=== PATIENT | female | born 1955 | race Caucasian/White ===

== ENCOUNTER → 2019-03-15 14:01 | Outpatient (CLI) | payer BC, SELFPAY ==
--- NOTE | 2019-03-15 14:10 | XR_ITS ---
PROCEDURE: XR KNEE RT 3V CLINICAL INDICATION: RT KNEE SWELLING COMPARISON: No exams were available for comparison FINDINGS: No fracture or dislocation. No lytic or blastic change. There is normal mineralization. There are mild osteoarthritic changes of the medial compartment and patellofemoral joint Other findings:None. IMPRESSION: . Mild osteoarthritis otherwise negative Dictated by: Bill Sidhu MD 03/15/2019 14:29 Electronically signed by Bill Sidhu MD in [place] 03/15/2019 14:29
[2019-03-15 15:33] LABS: Uric Acid 4.4 mg/dL (2.6-7.2)
[2019-03-15 15:34] LABS: C-Reactive Protein < 0.2 mg/dL (0.0-0.9)
[2019-03-15 16:01] LABS: Erythrocyte Sedimentation Rate 69 mm/hr (0-30)
[2019-03-19 06:36] LABS: RA Latex Turbid. 11.7 IU/mL (0.0-13.9)
[2019-03-20 06:14] LABS: Antinuclear Antibodies, IFA Negative (.)
== END ==
PROVIDERS: PCP Nurse Practitioner Family; Visit Provider Nurse Practitioner Family
DX: M25.461 Effusion, right knee (principal)
CPT/HCPCS: 36415; 73562; 84550; 85651; 86038; 86140; 86431

== ENCOUNTER 2019-07-30 13:00 | Outpatient (RCR) | payer BC, SELFPAY ==
--- NOTE | 2019-06-27 15:05 | HMH.PTOPEV ---
PT Outpatient Evaluation Rehab PT Outpatient Evaluation Start: 06/27/19 14:29 Freq: Status: Active Protocol: Document 06/27/19 14:29 PDESEROUX (Rec: 06/27/19 15:05 PDESEROUX [id number]) Electronically Signed By Devon Sandhu, PT 06/27/19 14:29 Outpatient Therapy Subjective History Subjective History Pt. is a 63 year old female who presents to outpatient PT for complaints of acute and intermittent RLE P! of insidious onset since . Pt. reports she was driving to work one morning and couldn't get out of her car because her RLE hurt so bad. Pt. reports her doctor thinks she has a pinched nerve from a bulging disc. Pt. reports some symptom relief post steroid pack, but more symptom relief w/ prescribed Gabapentin. Pt. denies recent diagnostic imaging nor injections for current pathology. 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 Pt. denies any bowel/bladder incontinences. Current medications include Gabapentin and Celexa. PMH includes Hysterectomy, Cholecystectomy, and bilateral Carpal Tunnel surgeries. Chief Complaint Pain Symptom Type Sharp,Shooting Symptoms Relieved By Rest/Positioning,Prescription Meds Symptoms Aggravated By Standing,Bending/Stooping, Twisting,Walking Prior Functional Limitations None Current Functional Limitations Housework,Sleeping,Standing, Walking,Bending/Stooping Symptom Description Intermittent Level of pain today (0-10) 0 Pain scale - at its best (0-10) 0 Pain scale - at its worst (0-10) 10 Lumbopelvic Eval Posture Thoracic Spine Posture Standing Position Neutral Lumbar Spine Posture Standing Position Neutral Assistive device Assistive Devices None / NA Gait Observation General Gait Pattern Observation Antalgic Gait,Decrease Weight Bear (R),Decrease Stride Lngth (L) Palapation tenderness
== END 2019-08-13 08:35 | disposition home or self-care (01) ==
LOC: PT.CARL 13:00
PROVIDERS: PCP Nurse Practitioner Family; Visit Provider Family Medicine
DX: M51.16 Intervertebral disc disorders with radiculopathy, lumbar region (principal); M54.16 Radiculopathy, lumbar region
CPT/HCPCS: 97010; 97012; 97014; 97033; 97110; 97140; 97163; G0283

== ENCOUNTER → 2020-04-10 11:42 | Outpatient (CLI) | payer BC, SELFPAY ==
--- NOTE | 2020-04-10 11:45 | XR_ITS ---
PROCEDURE: XR FOOT WT BEARING RT 3V CLINICAL INDICATION: pain COMPARISON: No exams were available for comparison FINDINGS: No fracture or dislocation. No lytic or blastic change. There is normal mineralization. The joint spaces are well-preserved. No significant degenerative/arthritic changes. No erosive changes evident. Other findings:Small calcaneal spur and small Achilles enthesophyte noted IMPRESSION: No acute findings. Dictated by: Bill Sidhu MD 04/10/2020 13:29 Bill Sidhu MD in [place] 04/10/2020 13:29
--- NOTE | 2020-04-10 11:45 | XR_ITS ---
PROCEDURE: XR FOOT WT BEARING LT 3V CLINICAL INDICATION: pain COMPARISON: No exams were available for comparison FINDINGS: No fracture or dislocation. No lytic or blastic change. There is normal mineralization. Mild degenerative changes at the navicular cuneiform and cuneiform metatarsal joint. Small calcaneal spur and small Achilles enthesophyte. There is an additional spur along the plantar surface of the calcaneus. Other findings:None. IMPRESSION: Mild degenerative changes with calcaneal spurs Dictated by: Bill Sidhu MD 04/10/2020 13:30 Bill Sidhu MD in [place] 04/10/2020 13:30
== END ==
PROVIDERS: PCP Family Medicine; Visit Provider Podiatrist
DX: M79.672 Pain in left foot (principal); M79.671 Pain in right foot
CPT/HCPCS: 73630; 87070; 87077; 87186; 87205

== ENCOUNTER → 2020-06-11 10:28 | Outpatient (CLI) | payer BC, SELFPAY ==
--- NOTE | 2020-06-11 10:34 | US_ITS ---
PROCEDURE: US EXTREMITY LT LIMITED CLINICAL INDICATION: evaluate for foreign body in left foot Puncture wound at the plantar surface of left foot, nonhealing wound. COMPARISON: CR XR FOOT WT BEARING LT 3V from 04/10/2020 CR XR FOOT WT BEARING RT 3V from 04/10/2020 FINDINGS: Fluid extends from the skin surface for a depth approximately 1.5 centimeters. Soft tissue projects into these areas of edema. A there is hyperemia at the skin surface. No hyperemia associated with deeper soft tissues to suggest developing abscess or foreign body reaction. IMPRESSION: No abscess or foreign body. Dictated by: Gunjan Pool MD 06/11/2020 13:22 Gunjan Pool MD in [place] 06/11/2020 13:22
== END ==
PROVIDERS: PCP Family Medicine; Visit Provider Podiatrist
DX: M79.672 Pain in left foot (principal); L02.612 Cutaneous abscess of left foot; L84 Corns and callosities
CPT/HCPCS: 76882; 87070; 87186; 87205

== ENCOUNTER 2020-08-14 11:00 | Outpatient (RCR) | payer BC, SELFPAY ==
--- NOTE | 2020-07-29 12:21 | HMH.PTOPEV ---
PT Outpatient Evaluation Rehab PT Outpatient Evaluation Start: 07/29/20 10:56 Freq: Status: Active Protocol: Document 07/29/20 10:56 MORRIS (Rec: 07/29/20 12:21 [email or web address] [id number]) Electronically Signed By Devon Sandhu, PT 07/29/20 10:56 Outpatient Therapy Subjective History Subjective History Pt. is a 64 year old female who presents to outpatient PT clinic w/ complaints of chronic and constant LBP! w/ subacute and intermittent BLE P! 2-3 weeks ago. Pt. reports having constant LBP! for as long as I can remember. Pt. describes the current BLE P! as an ache posteriorly that runs all the way down to my feet and make my feet hurt. Pt. reports BLE symptoms worsen w/ prolonged standing and ambulation, states having symptom relief w/ sitting. Pt. denies having recent diagnostic imaging nor injections for current pathology. Pt. also denies having bowel nor bladder dysfunction. Pt. RTMD 08/20/20 . Pt. 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 Current medications include Tylenol, Celexa, Ibuprofen, and Lisinopril. PMH includes lumbar spondylosis, OA, Hypertension, Hysterectomy, chronic LBP!, and a Cholecystectomy. Chief Complaint Pain,Stiff,Gives out/Unstable, Weakness Symptom Type Ache,Dull,Shooting Symptoms Relieved By Rest/Positioning,Heat,Ice,OTC Meds Symptoms Aggravated By Standing,Bending/Stooping, Physical Activity,Twisting, Walking,Lifting Prior Functional Limitations None Current Functional Limitations Lifting,Housework,Standing, Squatting,Recreation Activity, Walking,Stair
== END 2020-08-21 13:51 | disposition home or self-care (01) ==
LOC: PT.CARL 11:00
PROVIDERS: PCP Family Medicine; Visit Provider Family Medicine
DX: M54.5 Low back pain (principal)
CPT/HCPCS: 97010; 97014; 97110; 97140; 97163; G0283

== ENCOUNTER → 2020-09-01 12:47 | Outpatient (POV) | payer BC, SELFPAY ==
[2020-09-01 12:53] VITALS: BP 158/81; PULSE 97; RESP 20; TEMP 36.6; O2SAT 98; BMI 32.3
--- NOTE | 2020-09-01 13:15 | HMH.PMCON ---
Assessment and Plan (1) Back pain Status: Acute Category: Medical Code(s): M54.9 - Dorsalgia, unspecified (2) Lumbar radiculopathy Status: Acute Category: Medical Code(s): M54.16 - Radiculopathy, lumbar region - Assessment and plan all Dx Assessment and Plan for all problems:: I do believe the MRI will be very beneficial and help determining pathology for the patient. She has failed 6 weeks of conservative treatment including physical therapy inflammatories. I will follow-up with her on to review her MRI with her she has been instructed to call the office if she has any issues prior to her next appointment. Dr. Guillory has reviewed this note and agrees with this plan of care. This note was dictated using voice recognition software and may contain errors or omissions HPI - Data of Consult Consult date: 09/01/20 Requesting Physician: Lesli Werner APRN Primary Care Provider: Bo Weir MD - Consult Narrative Reason for consult: Back pain History of present illness: Ms. Butcher is a 64 year old female who presents today for consultation regards to her low back and bilateral leg pain. Patient had right leg symptomology sometime back. She had a locking up of her leg this did improve with physical therapy. However it is now returned and is in her bilateral lower extremities. She rates her pain today a 6 out of 10. She has an MRI set up for Tuesday. CC: Lesli Werner APRN [facility] History I have reviewed the patient's past medical history: Yes Medical History: Reports:: Anxiety, Hypertension Denies:: Cancer, Diabetes Mellitus Type 1, Diabetes Mellitus Type 2, MRSA *Have you ever received a pneumonia vaccine?: No *Have you received a flu vaccine this season?: No Laterality Cases: Bilateral: Carpal Tunnel Release Other Surgeries: Yes: Cholecystectomy, Colonoscopy, Hysterectomy-Total Amputation: No Fractures: No - *Social History Smoking Status: Current every day smoker # Packs/Day (cigarettes): 1 Alcohol Intake: never *Occupational Status:: employed Housing: house *Travel in the last 8 weeks: None - Psychiatric History Pschychiatric History:: Reports:: Anxiety Family Hx:: Cancer Review of Systems - Review of Systems ROS General: no recent weight change, no fever, no sleep disturbances Respiratory: no cough, no shortness of air, no recurring pulmonary infections Cardiovascular/Peripheral Vascular: No chest pain, No palpitations, no edema, no shortness of breath. Gastrointestinal: no new onset incontinence, normal bowel movements reported Genitourinary: no new onset incontinence Musculoskeletal: Back pain, leg pain Psychiatric: normal mood/ affect Neurological: [denies new onset weakness in extremities], [denies new onset balance issues] Meds Home Medications Medication Instructions Recorded Confirmed Type citalopram 20 mg tablet 20 mg PO DAILY tab 04/10/20 09/01/20 History lisinopril 5 mg tablet 5 mg PO DAILY tab 06/24/20 09/01/20 History Allergies Allergy/AdvReac Type Severity Reaction Status Date / Time codeine Allergy Nausea Verified 09/01/20 12:54 Sulfa (Sulfonamide Allergy Nausea Verified 09/01/20 12:54 Antibiotics) Objective Vital signs: Temp Pulse Resp BP Pulse Ox 97.9 F 97 H 20 158/81 H 98 09/01/20 12:53 09/01/20 12:53 09/01/20 12:53 09/01/20 12:53 09/01/20 12:53 Narrative: Physical Exam General: Alert and oriented x3, no acute distress, pleasant and cooperative, [on room air] Lungs: Resps E/U, Symmetrical chest expansion, Eyes: PERRL Musculoskeletal: Flexion and extension of lumbar spine somewhat guarded secondary to pain, deep tendon reflexes normal, strength in upper and lower extremities [5/5], antalgic gait noted Neurological: speech clear, distance learning coordinator equal, no gross sensory deficits
== END ==
PROVIDERS: PCP Family Medicine; Visit Provider Clinical Nurse Specialist Family Health
DX: M54.9 Dorsalgia, unspecified (principal); M54.16 Radiculopathy, lumbar region
CPT/HCPCS: 99202; G0463

== ENCOUNTER → 2020-09-03 14:50 | Outpatient (CLI) | payer BC, SELFPAY ==
--- NOTE | 2020-09-03 14:53 | MR_ITS ---
PROCEDURE: MR LUMBAR SPINE WO CON CLINICAL INDICATION: ACUTE BILATERAL LOW BACK PAIN COMPARISON: No exams were available for comparison TECHNIQUE: Standard multiplanar multiecho sequences are performed without contrast. 3-D MIP and myelographic images are also rendered and reviewed FINDINGS: There is normal lumbar lordosis. Vertebral body heights and alignment are maintained. Schmorl's node noted and the superior endplate of T12 vertebral body. Modic type 2 change noted at the inferior endplate of L2 vertebral body. Minor disc desiccation with disc bulges. Bone marrow signal intensity is unremarkable without evidence of marrow infiltrative process. The conus terminates at L1 level. Both kidneys demonstrate multiple T2 hyperintense lesions, largest on the left measuring up to 1.8 centimeters, partially visualized. Further details as described below: T12-L1: No significant canal or foraminal narrowing L1-2: Small disc bulge and mild bilateral facet joint hypertrophy causes mild canal and mild bilateral foraminal narrowing. L2-3: Broad-based disc bulge, bilateral facet joint and ligamentum flavum hypertrophy causes mild to moderate bilateral foraminal narrowing. No significant canal narrowing. L3-4: Broad-based disc bulge with small annular tear and mild bilateral facet joint hypertrophy causes mild to moderate canal narrowing. There is mild bilateral foraminal narrowing. L4-5: Broad-based disc bulge, bilateral facet joint and ligamentum flavum hypertrophy causes moderate right and mild left foraminal narrowing. Mild canal narrowing is noted. L5-S1: Broad-based disc bulge, bilateral facet joint hypertrophy causes minor thecal sac indentation. There is moderate bilateral foraminal narrowing. IMPRESSION: Minor multilevel degenerative changes of the lumbar spine with mild to moderate foraminal narrowing at multiple levels as described above. Dictated by: Amanda Llamas 09/04/2020 09:42 Amanda Llamas in [place] 09/04/2020 09:42
== END ==
PROVIDERS: PCP Family Medicine; Visit Provider Family Medicine
DX: M54.5 Low back pain (principal); M48.062 Spinal stenosis, lumbar region with neurogenic claudication
CPT/HCPCS: 72148; 76376

== ENCOUNTER → 2020-09-04 14:38 | Outpatient (POV) | payer BC, SELFPAY ==
[2020-09-04 14:56] VITALS: BP 125/88; PULSE 89; RESP 18; O2SAT 98; BMI 32.3
--- NOTE | 2020-09-04 15:30 | P.CONS_ITS ---
[facility] Pain Management SOAP Note Subjective:: Patient is a pleasant 64-year-old white female who presents today for follow-up after MRI. Patient has multilevel degenerative disc disease and broad-based disc bulge. Severe L5-S1. Patient is having pain in her low back and bilateral lower extremities. We discussed epidural steroid injections and neurosurgical consultation she would like to move forward with this. She is not on any anticoagulation therapy. She is failed over 6 weeks of conservative therapy including physical therapy, anti-inflammatories. ROS General: no recent weight change, no fever, no sleep disturbances Respiratory: no cough, no shortness of air, no recurring pulmonary infections Cardiovascular/Peripheral Vascular: No chest pain, No palpitations, no edema, no shortness of breath. Gastrointestinal: no new onset incontinence, normal bowel movements reported Genitourinary: no new onset incontinence Musculoskeletal: Back pain, leg pain Psychiatric: normal mood/ affect, Neurological: [denies new onset weakness in extremities], [denies new onset balance issues] Objective:: Physical Exam General: Alert and oriented x3, no acute distress, pleasant and cooperative, [on room air] Lungs: Resps E/U, Symmetrical chest expansion, Eyes: PERRL Musculoskeletal: Flexion and extension of lumbar spine somewhat guarded secondary to pain, deep tendon reflexes normal, strength in upper and lower extremities [5/5], [abnormal gait noted] Neurological: speech clear, clothes separator equal, no gross sensory deficits Assessment:: Degenerative disc disease lumbar spine lumbar radiculopathy, back pain Plan:: We will set her up for an L5-S1 epidural steroid injection. She has been instructed to call the office if she has any issues prior to her next appointment. I will follow-up with her afterwards reassess her symptoms at that time Dr. Guillory has reviewed this note and agrees with this plan of care. This note was dictated using voice recognition software and may contain errors or omissions [facility] History I have reviewed the patient's past medical history: Yes Medical History: Reports:: Anxiety, Hypertension Denies:: Cancer, Diabetes Mellitus Type 1, Diabetes Mellitus Type 2, MRSA *Have you ever received a pneumonia vaccine?: Yes *Have you received a flu vaccine this season?: Yes Laterality Cases: Bilateral: Carpal Tunnel Release Other Surgeries: Yes: Cholecystectomy, Colonoscopy, Hysterectomy-Total Amputation: No Fractures: No - *Social History Smoking Status: Current every day smoker # Packs/Day (cigarettes): 1 Alcohol Intake: never *Occupational Status:: employed Housing: house *Travel in the last 8 weeks: None - Psychiatric History Pschychiatric History:: Reports:: Anxiety Family Hx:: Cancer
== END ==
PROVIDERS: PCP Family Medicine; Visit Provider Clinical Nurse Specialist Family Health
DX: M51.16 Intervertebral disc disorders with radiculopathy, lumbar region (principal)
CPT/HCPCS: 99212; G0463

== ENCOUNTER 2020-09-12 14:20 | Day surgery (SDC) | payer BC, SELFPAY ==
[2020-09-12 14:35] VITALS: BP 184/93; PULSE 94; RESP 18; TEMP 36.3; O2SAT 98; BMI 32.3
[2020-09-12 15:02] VITALS: BP 155/85; PULSE 99; RESP 18; O2SAT 98
[2020-09-12 15:03] VITALS: BP 156/85; PULSE 98; RESP 18; O2SAT 99
--- NOTE | 2020-09-12 15:04 | HMH.PMPROC ---
- Procedure Date: 09/12/20 Time: 15:04 Anesthesiologist:: Dewey Guillory MD Complications:: None Pre-procedure Diagnosis:: Degenerative disc disease of lumbar spine with lumbar radiculopathy symptoms Post-procedure Diagnosis:: Same Indications for Procedure:: This patient is a pleasant 64-year-old white female who we are treating for low back pain with lumbar radiculopathy symptoms. She does have multilevel degenerative disc disease with broad-based disc bulge at L5-S1. Will do lumbar epidural steroid injection today to see if this helps with her back pain and leg pain. Procedure Details:: Informed consent was obtained and the risk and benefits of the procedure was explained to the patient. The patient was taken to the procedure room. The patient was placed prone on the procedure table. The patient was prepped and draped in sterile fashion. C-arm fluoroscopy was used to view the lumbar spine. Skin and subcutaneous tissues were anesthetized using lidocaine. I placed an 18-gauge epidural needle and advanced into the L4-L5 interspace using fluoroscopic guidance and [id number] to air. After confirmation of needle placement in the epidural space with dye I injected 2 mL of lidocaine 1.5% with Depo-Medrol 80 mg. Patient tolerated the procedure well with no complications. Plan and Disposition:: We will follow-up with her in 2 weeks. Will reevaluate her symptoms at that time.
[2020-09-12 15:20] VITALS: BP 148/97; PULSE 97; RESP 18; O2SAT 98
== END 2020-09-12 15:20 | disposition home or self-care (01) ==
PROVIDERS: PCP Family Medicine; Visit Provider Anesthesiology
DX: M51.16 Intervertebral disc disorders with radiculopathy, lumbar region (principal); I10 Essential (primary) hypertension; F41.9 Anxiety disorder, unspecified; Z72.0 Tobacco use; F32.9 Major depressive disorder, single episode, unspecified; Z87.39 Personal history of other diseases of the musculoskeletal system and connective tissue; Z88.2 Allergy status to sulfonamides; Z88.6 Allergy status to analgesic agent
CPT/HCPCS: 62323; J1040; Q9966

== ENCOUNTER → 2020-10-06 14:37 | Outpatient (CLI) | payer BC, SELFPAY ==
--- NOTE | 2020-10-06 14:41 | US_ITS ---
PROCEDURE: US KIDNEY CLINICAL INDICATION: RENAL CYST COMPARISON: MR MR LUMBAR SPINE WO CON from 09/03/2020 FINDINGS: The right kidney is [id number]. No hydronephrosis, cortical thinning, or renal mass or perinephric fluid collection is evident. The left kidney is [id number]. No hydronephrosis, cortical thinning, or renal mass or perinephric fluid collection is evident. There are a few small subcentimeter bilateral renal cortical cysts similar to prior MRI. In addition there is a mildly complex 2 centimeter cyst on the right kidney. Therefore, further imaging with CT abdomen with renal mass protocol is recommended. Renal vascular flow noted bilaterally. IMPRESSION: A few small bilateral renal cortical cysts. Mildly complex 2 centimeter cyst on the right kidney for which further imaging with CT abdomen with renal mass protocol is recommended. No hydronephrosis. Dictated by: Gary Key 10/07/2020 09:02 Gary Key in [place] 10/07/2020 09:02
== END ==
PROVIDERS: PCP Family Medicine; Visit Provider Family Medicine
DX: N28.1 Cyst of kidney, acquired (principal)
CPT/HCPCS: 76770

== ENCOUNTER → 2020-10-11 07:31 | Outpatient (CLI) | payer BC, SELFPAY ==
[2020-10-11 08:18] LABS: Blood Urea Nitrogen 12 mg/dl (7-17); Estimated Glomerular Filt Rate 101 ml/min (>60); GFR (African American) 122 ML/MIN (>60)
== END ==
PROVIDERS: Visit Provider Family Medicine
DX: N28.1 Cyst of kidney, acquired (principal)
CPT/HCPCS: 36415; 82565; 84520

== ENCOUNTER → 2020-10-13 10:49 | Outpatient (CLI) | payer BC, SELFPAY ==
--- NOTE | 2020-10-13 10:54 | CT_ITS ---
PROCEDURE: CT ABDOMEN WO/W CON CLINICAL HISTORY: RENAL CYST Follow-up renal cyst COMPARISON: MR MR LUMBAR SPINE WO CON from 09/03/2020 US US KIDNEY from 10/06/2020 TECHNIQUE: 75 mL Isovue 350 Axial images obtained with sagittal and coronal reformats. All CT scans at the facility use one or more dose reduction, viz: automated exposure control, ma/kV adjustment per patient size (including targeted exams where dose is matched to indication, i.e. head), or iterative reconstruction technique. FINDINGS: Lung bases are clear. There has been a prior cholecystectomy. No focal liver lesion apparent. There are few small peripancreatic and periportal lymph nodes. The spleen, adrenal glands, and pancreas have an unremarkable appearance. There are nonobstructing punctate bilateral renal calculi. The stones measure up to 3 mm in the lower pole on the right and 2 mm in the mid polar region on the left. No hydronephrosis. There are bilateral renal cysts noted the largest measuring 2 cm in the mid pole posteriorly on the right and may contain a thin internal septation as noted on the ultrasound. No enhancing septa or cortical thickening apparent. No wall calcification. There is a cortical scar involving the left kidney laterally. No retroperitoneal adenopathy. There is a 1.5 cm cyst in the upper pole of the left kidney medially which may also contain a thin septation. No wall enhancement Degenerative changes are present in the lower thoracic spine. IMPRESSION: Bilateral renal cyst as described above Bosniak class 2 F. Suggest 6 month follow-up to confirm stability. Bilateral nephrolithiasis. No ureteral calculi or hydronephrosis. Dictated by: Bill Sidhu MD 10/13/2020 12:12 Bill Sidhu MD in [place] 10/13/2020 12:12
== END ==
PROVIDERS: PCP Family Medicine; Visit Provider Family Medicine
DX: N28.1 Cyst of kidney, acquired (principal)
CPT/HCPCS: 74170; Q9967

== ENCOUNTER 2020-11-06 11:00 | Outpatient (RCR) | payer BC, MEDICARE, SELFPAY ==
--- NOTE | 2020-10-10 11:28 | HMH.PTOPEV ---
PT Outpatient Evaluation Rehab PT Outpatient Evaluation Start: 10/10/20 09:48 Freq: Status: Active Protocol: Document 10/10/20 10:34 PDEKEN (Rec: 10/10/20 11:27 [email or web address] [id number]) Electronically Signed By Devon Sandhu, PT 10/10/20 10:34 Outpatient Therapy Subjective History Subjective History Pt. is a 64 year old female who presents to outpatient PT clinic w/ c/o of constant and chronic LBP! of insidious onset for several years now, and intermittent BLE hip P!(L>R) of insidious onset for several months now. Pt. reports having BLE radicular symptom relief w/ previous PT, c/o of radicular P! in bilateral hips now instead of all the way to the feet. Pt. reports constant soreness in the LB w/ shooting sharp P! into both hips(L>R) at this time. Pt. reports still having some symptom relief w/ exercises from previous Physical Therapy . Recent diagnostic imaging positive for lumbar DDD, annular tear(L3/L4), and OA per pt. report. Pt. reports no symptom relief w/ recent injection for current pathology. Pt. reports Surgeon has denied to operate on her LB d/t no disc herniation at this time, was informed to take OTC anti-inflammatories and to continue PT. Pt. reports she plans on retiring from her occupational duty at the end of this month. Current medications include Tylenol, Celexa, Ibuprofen, and Lisinopril. PMH includes lumbar spondylosis, OA, Hypertension, Hysterectomy, chronic LBP!, and a Cholecystectomy. Chief Complaint Pain,Spasms,Weakness Symptom Type Ache,Sharp,Dull,Stabbing, Shooting Symptoms Relieved By Rest/
== END 2020-11-06 12:00 | disposition home or self-care (01) ==
LOC: PT.CARL 11:00
PROVIDERS: PCP Family Medicine; Visit Provider Family Medicine
DX: M51.16 Intervertebral disc disorders with radiculopathy, lumbar region; M51.36 Other intervertebral disc degeneration, lumbar region
CPT/HCPCS: 97010; 97014; 97110; 97140; 97163; G0283

== ENCOUNTER → 2021-05-06 08:03 | Outpatient (CLI) | payer MEDICARE, SELFPAY ==
--- NOTE | 2021-05-06 08:26 | CT_ITS ---
FINAL REPORT TECHNIQUE: The patient was injected with IV contrast. Axial images were obtained from the lung bases to the pubic symphysis by computed tomography. Precontrast images were also obtained. This study was performed with techniques to keep radiation doses as low as reasonably achievable (ALARA). Individualized dose reduction techniques using automated exposure control or adjustment of mA and/or kV according to the patient's size were employed. CLINICAL HISTORY: BILATERAL RENAL CYSTS COMPARISON: 10/13/2020 FINDINGS: ABDOMEN: The lung bases are clear. The heart is normal in size. The liver is normal. The patient is status post cholecystectomy. The spleen is unremarkable. No adrenal masses present. The pancreas is normal. On the noncontrast images, there are several less than 3 mm bilateral nonobstructing renal stones which are similar to prior. There is mild vascular calcification. On the postcontrast images, there are 3 low-attenuation right renal masses, largest is posteromedial measuring 25 mm and appears stable. The other masses also appear stable in size., There are 2, low-attenuation left renal masses, largest measures 1.7 cm and also appears stable. There is mild scarring of the left kidney. The aorta is normal in caliber. There is no free fluid or adenopathy. PELVIS: The appendix is not identified. The urinary bladder is unremarkable. There is no free fluid or adenopathy identified. IMPRESSION: Stable bilateral renal masses, likely represent cysts. These could be further evaluated with additional follow-up in 12 months. Reviewed, Interpreted and Dictated by Richard Blackwood III, MD Transcribed by Jessica Weaver Authenticated by Richard Blackwood III, MD on 05/06/2021 10:34:[address] [facility]
[2021-05-06 08:36] LABS: Blood Urea Nitrogen 13 mg/dl (7-17); Estimated Glomerular Filt Rate 100 ml/min (>60); GFR (African American) 121 ML/MIN (>60)
== END ==
PROVIDERS: PCP Family Medicine; Visit Provider Family Medicine
DX: N28.1 Cyst of kidney, acquired (principal)
CPT/HCPCS: 36415; 74170; 82565; 84520; Q9967

== ENCOUNTER → 2022-01-19 08:03 | Outpatient (CLI) | payer MEDICARE, SELFPAY ==
--- NOTE | 2022-01-19 08:04 | MM_ITS ---
PROCEDURE INFORMATION: Exam: MG Bilateral Screening 3D Mammography Exam date and time: 01/19/2022 8:18 AM Age: 66 years old Clinical indication: Baseline. Her mother had breast cancer at age 64. TECHNIQUE: Imaging protocol: Bilateral Screening tomosynthesis and 2D mammography including computer-aided detection (CAD) when performed. COMPARISON: No relevant prior studies available. FINDINGS: MAMMOGRAPHY: Breast composition: There are scattered areas of fibroglandular density. Mass: No suspicious mass. Architectural distortion: None. Calcifications: No suspicious calcifications. Asymmetric density: None. Skin thickening: None. Axillary adenopathy: None. IMPRESSION: No mammographic evidence of malignancy. Annual screening is recommended unless otherwise clinically indicated. ASSESSMENT: BI-RADS Category 1: Negative
== END ==
PROVIDERS: PCP Family Medicine; Visit Provider Obstetrics & Gynecology
DX: Z12.31 Encounter for screening mammogram for malignant neoplasm of breast (principal)
CPT/HCPCS: 77063; 77067

== ENCOUNTER → 2022-11-18 08:05 | Outpatient (CLI) | payer MEDICARE, SELFPAY ==
--- NOTE | 2022-11-18 08:09 | XR_ITS ---
FINAL REPORT CLINICAL HISTORY: . post menopausal COMPARISON: None FINDINGS: Using L1-4, the bone mineral density of the spine is 0.872 g/cm2, corresponding to T-score of -1.6. This is in the osteopenic range. Using the left hip, the bone mineral density of the femoral neck is 0.719 g/cm2, corresponding to a T-score of -1.2. This is in the osteopenic range. Using the right hip, the bone mineral density of the femoral neck is 0.685 g/cm2, corresponding to a T-score of -1.5. This is in the osteopenic range. NOTE: T-score: Standard deviation compared with peak bone mass of young adult mean. *Following the recommendations of the International Society of Bone densitometry, classification of hip BMD is based on the lower of two T-scores; total hip or femoral neck. IMPRESSION: Diminished bone mineral density consistent with osteopenia. Reviewed, Interpreted and Dictated by Christel Barrett MD Transcribed by Keiko Solo Authenticated and [facility]
--- NOTE | 2022-11-18 08:10 | CT_ITS ---
FINAL REPORT TECHNIQUE: Axial CT images of the chest were obtained without contrast. Low-dose protocol was utilized. This study was performed with techniques to keep radiation doses as low as reasonably achievable (ALARA). Individualized dose reduction techniques using automated exposure control or adjustment of mA and/or kV according to the patient's size were employed. CLINICAL HISTORY: H/O TOBACCO USE, CURRENT SMOKER 1PPD X40 YEARS COMPARISON: None FINDINGS: CT CHEST WITHOUT, LOW DOSE SCREENING CT Di Vol: 2.90 mGy DLP: 91.16 mGy*cm There is no axillary, mediastinal, or hilar adenopathy. The heart size is normal. There is no pleural or pericardial effusion. The lung windows show a 2 mm right middle lobe nodule seen on image 41 and a 5 mm left apical nodule seen on image 16. Limited images of the upper abdomen demonstrate no acute findings. IMPRESSION: LR Category 2: 12 month follow-up low-dose chest CT is recommended. Reviewed, Interpreted and Dictated by Christel Barrett MD Transcribed by Keiko Solo Authenticated and [facility]
== END ==
PROVIDERS: PCP Family Medicine; Visit Provider Family Medicine
DX: Z78.0 Asymptomatic menopausal state (principal); Z87.891 Personal history of nicotine dependence; Z13.820 Encounter for screening for osteoporosis; Z12.2 Encounter for screening for malignant neoplasm of respiratory organs; I10 Essential (primary) hypertension; Z23 Encounter for immunization
CPT/HCPCS: 71271; 77080

== ENCOUNTER 2023-04-28 07:42 | Outpatient (CLI) | payer MEDICARE, SELFPAY ==
--- NOTE | 2023-04-28 07:43 | MM_ITS ---
PROCEDURE INFORMATION: Exam: MG Bilateral Screening 3D Mammography Exam date and time: 04/28/2023 7:53 AM Age: 67 years old Clinical indication: Screening examination TECHNIQUE: Imaging protocol: Bilateral Screening tomosynthesis and 2D mammography including computer-aided detection (CAD) when performed. COMPARISON: MG MM DIG SCREENING MAMM BI W/CAD 01/19/2022 8:18 AM FINDINGS: MAMMOGRAPHY: Breast composition: There are scattered areas of fibroglandular density. Mass: None. Architectural distortion: None. Calcifications: No suspicious calcifications. Asymmetric density: None. Skin thickening: None. Axillary adenopathy: None. IMPRESSION: No mammographic evidence of malignancy. Annual screening is recommended unless otherwise clinically indicated. ASSESSMENT: BI-RADS Category 1: Negative
== END 2023-04-28 23:59 ==
LOC: RAD 07:42
PROVIDERS: PCP Family Medicine; Visit Provider Obstetrics & Gynecology
DX: Z12.31 Encounter for screening mammogram for malignant neoplasm of breast (principal)
CPT/HCPCS: 77063; 77067

== ENCOUNTER 2023-11-18 07:06 | Outpatient (CLI) | payer MEDICARE, SELFPAY ==
--- NOTE | 2023-11-18 07:09 | CT_ITS ---
FINAL REPORT TECHNIQUE: Axial CT images of the chest were obtained without contrast. Low-dose protocol was utilized. This study was performed with techniques to keep radiation doses as low as reasonably achievable (ALARA). Individualized dose reduction techniques using automated exposure control or adjustment of mA and/or kV according to the patient's size were employed. CLINICAL HISTORY: SCREENING; current smoker; 1 PPD; smoker for 40 + years COMPARISON: 11/18/2022 FINDINGS: CT CHEST WITHOUT, LOW DOSE SCREENING CT Di Vol: 2.90 mGy DLP: 96.38 mGy*cm There is no axillary, mediastinal, or hilar adenopathy. The heart size is normal. There is no pleural or pericardial effusion. The lung windows show a stable left apical lung nodule on image 20 measuring 5 mm. The previously described right middle lobe nodule is not seen on the current exam. Limited images of the upper abdomen demonstrate no acute findings. The patient is status postcholecystectomy. IMPRESSION: No suspicious pulmonary nodule. LR Category 2: 12 month follow-up low-dose chest CT is recommended. Reviewed, Interpreted and Dictated by Christel Barrett MD Transcribed by Keiko Solo Authenticated and [facility]
== END 2023-11-18 23:59 | disposition home or self-care (01) ==
LOC: RAD 07:06
PROVIDERS: PCP Family Medicine; Visit Provider Family Medicine
DX: Z87.891 Personal history of nicotine dependence (principal); Z12.2 Encounter for screening for malignant neoplasm of respiratory organs
CPT/HCPCS: 71271

== ENCOUNTER 2024-06-08 10:01 | Outpatient (CLI) | payer MEDICARE, SELFPAY ==
--- NOTE | 2024-06-08 10:01 | MM_ITS ---
PROCEDURE INFORMATION: Exam: MG Bilateral Screening 3D Mammography Exam date and time: 06/08/2024 10:23 AM Age: 68 years old Clinical indication: Screening exam. TECHNIQUE: Imaging protocol: Bilateral Screening tomosynthesis and 2D mammography including computer-aided detection (CAD) when performed. COMPARISON: 1. MG MM DIG SCREENING MAMM BI W/CAD 04/28/2023 7:53 AM 2. MG MM DIG SCREENING MAMM BI W/CAD 01/19/2022 8:18 AM FINDINGS: MAMMOGRAPHY: Breast composition: There are scattered areas of fibroglandular density. Mass: No suspicious masses. Architectural distortion: None. Calcifications: No suspicious calcifications. Asymmetric density: None. Skin thickening: None. Axillary adenopathy: None. IMPRESSION: No mammographic evidence of malignancy. Annual screening is recommended unless otherwise clinically indicated. ASSESSMENT: BI-RADS Category 1: Negative.
== END 2024-06-08 23:59 | disposition home or self-care (01) ==
LOC: RAD 10:01
PROVIDERS: PCP Family Medicine; Visit Provider Obstetrics & Gynecology
DX: Z12.31 Encounter for screening mammogram for malignant neoplasm of breast (principal)
CPT/HCPCS: 77063; 77067

== ENCOUNTER 2024-11-23 09:09 | Outpatient (CLI) | payer MEDICARE, SELFPAY ==
--- OUTSIDE RECORDS SUMMARY | 2024-11-12 09:15 | XMS_ITS | Encounter Summary ---
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 Unsteady gait when walking Foraminal stenosis of lumbar region Lumbar disc disease with radiculopathy Procedures MRI Lumbar Spine Without Contrast Bo Weir MD [address] [place] [address] Phone: tel: fax: [facility] [address] [place] [address] Phone: tel: Referral ID Status Reason Start Date Expiration Date V isits Requested Visits Authorized Pending Review 11/12/2024 02/11/2026 1 1 * Diagnostic Imaging (Routine) - Authorized Specialty Diagnoses / Procedures Referred By Contac t Referred To Contact Diagnoses Bilateral renal cysts Procedures US Renal Bilateral Bo Weir MD [address] [place] [address] Phone: tel: fax: [facility] [address] [place] [address] Phone: tel: fax: Referral ID Status Reason Start Date Expiration Date V isits Requested Visits Authorized [id number] Authorized 11/12/2024 02/11/2026 1 1 * MRI/CAT/PET Scan (Routine) - Authorized Specialty Diagnoses / Procedures Referred By Contac t Referred To Contact Diagnoses Cigarette smoker Personal history of nicotine dependence Encounter for screening for lung cancer Procedures CT Chest Low Dose Cancer Screening WO Bo Weir MD [address] [place] [address] Phone: tel: fax: [facility] [address] [facility] [address] [place] [address] Phone: tel: fax: Referral ID Status Reason Start Date Expiration Date V isits Requested Visits Authorized [id number] Authorized 11/12/2024 02/11/2026 1 1 Reason for Visit * Reason Comments Medicare Wellness-subsequent Encounter Details Date Type Department Care Team (Latest Contact Info) Description 11/12/2024 9:15 AM EDT Office Visit [facility] [address] [place] [id number] Bo Weir MD [address] [place] [address] Medicare annual wellness visit, subsequent (Primary Dx); Annual physical exam; Major depressive disorder, recurrent, mild; Primary hypertension; Hypercholesterolemia; Impaired fasting glucose; Cigarette smoker; Personal history of nicotine dependence; Encounter for screening for lung cancer; Arthritis of lumbar spine; Bilateral renal cysts; Chronic bilateral low back pain with left-sided sciatica; Unsteady gait when walking; Foraminal stenosis of lumbar region; Lumbar disc disease with radiculopathy Social History Tobacco Use Types Packs/Day Years Used Date Smoking Tobacco: Every Day Cigarettes 1 40.5 Started: 01/24/1985 Smokeless Tobacco: Never Tobacco Cessation:Ready to Q uit: No Comments:smoked for over 40 years Alcohol Use Standard Drinks/Week Comments Not Currently 1 (1 standard drink = 0.6 oz pur e alcohol) Have not drank wine in years AUDIT-C Answer Date Recorded Q1: How often do you have a drink containing alc ohol? Never 10/01/2020 Average Number of Drinks Not on file 021 Frequency of Binge Drinking Not on file 12/2020 PHQ-2 Answer Date Recorded Retired PHQ-9: Brief Depression Severity Measure Score 0 11/04/2022 PHQ-2 Answer Date Recorded Patient Health Questionnaire-2 Score 0 11/12/2024 Comments Unknown Sex and Gender Information Value Date Recorded Sex Assigned at Female 11/07/2024 11:26 AM EDT Legal Sex Female 2:09 PM EDT Gender Identity Not on file Sexual Orientation Not on file documented as of this encounter Last Filed Vital Signs Vital Sign Reading Time Taken Comments Blood Pressure 120/80 11/12/2024 9:08 AM EDT Pulse 99 11/12/2024 9:08 AM EDT Temperature 36.5 C (97.7 F) 11/12/2024 9:08 AM EDT Respiratory Rate 20 11/12/2024 9:08 AM EDT Oxygen Saturation 100% 11/12/2024 9:08 AM EDT Inhaled Oxygen Concentration - - Weight 88.4 kg (194 lb 12.8 oz) 11/12/2024 9:08 AM EDT Height 165.1 cm (5' 5 ) 11/12/2024 9:08 AM EDT Body Mass Index 32.42 11/12/2024 9:08 AM EDT documented in this encounter Functional Status documented as of this encounter Progress Notes * Bo Weir MD - 11/12/2024 9:15 AM EDTAssociated Problem(s): Primary hypertension Hypertension is stable and controlled Continue current treatment regimen. Blood pressure will be reassessed in 6 months. Orders: lisinopril (PRINIVIL,ZESTRIL) 5 MG tablet; Take 1 tablet by mouth Daily. CBC (No Diff) Comprehensive Metabolic Panel * Bo Weir MD - 11/12/2024 9:15 AM EDTAssociated Problem(s): Cigarette smoker Orders: CT Chest Low Dose Cancer Screening WO; Future * Bo Weir MD - 11/12/2024 9:15 AM EDTAssociated Problem(s): Arthritis of lumbar spine Orders: MRI Lumbar Spine Without Contrast; Future * Bo Weir MD - 11/12/2024 9:15 AM EDT Images from the original note were not included. Subjective The ABCs of the Annual Wellness Visit Medicare Wellness Visit Carlos Butcher is a 69 y.o. patient who presents for a Medicare Wellness Visit. The following portions of the patient's history were reviewed and updated as appropriate: allergies, current medications, past family history, past medical history, past social history, past surgical history, and problem list. Compared to one year ago, the patient's physical health is worse. Increasing back pain with radiation into her left leg Compared to one year ago, the patient's mental health is the same. Recent Hospitalizations: She was not admitted to the hospital during the last year. Current Medical Providers: Patient Care Team: Bo Weir MD as PCP - General (Family Medicine) Dewey Guillory MD as Referring Physician (Anesthesiology) Outpatient Medications Prior to Visit Medication Sig Dispense Refill Calcium Carb-Cholecalciferol (CALCIUM 600-D PO) Take by mouth. cyclobenzaprine (FLEXERIL) 5 MG tablet Take 1 tablet by mouth 3 (Three) Times a Day As Needed for Muscle Spasms. 30 tablet 2 lidocaine (LIDODERM) 5 % PLACE ONE PATCH ON THE SKIN DIRECTED REMOVE AFTER 12 HOURS OR DIRECTED BY MD 30 patch 0 Multiple Vitamins-Minerals (ICAPS AREDS 2 PO) Take by mouth. VITAMIN D, ERGOCALCIFEROL, PO Take by mouth. citalopram (CeleXA) 40 MG tablet Take 1 tablet by mouth Daily. 90 tablet 1 lisinopril (PRINIVIL,ZESTRIL) 5 MG tablet Take 1 tablet by mouth once daily 90 tablet 0 rosuvastatin (CRESTOR) 5 MG tablet Take 1 tablet by mouth Daily. 90 tablet 3 No facility-administered medications prior to visit. No opioid medication identified on active medication list. I have reviewed chart for other potential high risk medication/s and harmful drug interactions in the elderly. Aspirin is not on active medication list. Aspirin use is not indicated based on review of current medical condition/s. Risk of harm outweighs potential benefits. . Patient Active Problem List Diagnosis Primary hypertension Cigarette smoker Arthritis of lumbar spine Advance Care Planning Advance Directive is not on file. ACP discussion was held with the patient during this visit. Patient does not have an advance directive, information provided. Objective Vitals: 11/12/24 0908 BP: 120/80 Pulse: 99 Resp: 20 Temp: 97.7 ??F (36.5 ??C) SpO2: 100% Weight: 88.4 kg (194 lb 12.8 oz) Height: 165.1 cm (65 ) PainSc: 6 PainLoc: Back Estimated body mass index is 32.42 kg/m?? as calculated from the following: Height as of this encounter: 165.1 cm (65 ). Weight as of this encounter: 88.4 kg (194 lb 12.8 oz). BMI is >= 30 and <35. (Class 1 Obesity). The following options were offered after discussion;: nutrition counseling/recommendations Does the patient have evidence of cognitive impairment? No Health Risk Assessment Smoking Status: Social History Tobacco Use Smoking Status Every Day Current packs/day: 1.00 Average packs/day: 1 pack/day for 40.5 years (40.5 ttl pk-yrs) Types: Cigarettes Start date: 01/24/1985 Smokeless Tobacco Never Tobacco Comments smoked for over 40 years Alcohol Consumption: Social History Substance and Sexual Activity Alcohol Use Not Currently Alcohol/week: 1.0 standard drink of alcohol Comment: Have not drank wine in years Fall Risk Screen ELISEO Fall Risk Assessment was completed, and patient is at LOW risk for falls.Assessment completed on:11/12/2024 Depression Screening Little interest or pleasure in doing things? Not at all Feeling down, depressed, or hopeless? Not at all PHQ-2 Total Score 0 Health Habits and Functional and Cognitive Screenin11/07/2024 11:37 AM Functional & Cognitive Status Do you have difficulty preparing food and eating? No Do you have difficulty bathing yourself, getting dressed or grooming yourself? No Do you have difficulty using the toilet? No Do you have difficulty moving around from place to place? No Do you have trouble with steps or getting out of a bed or a chair? No Current Diet Unhealthy Diet Dental Exam Up to date Eye Exam Up to date Exercise (times per week) 0 times per week Current Exercises Include House Cleaning Do you need help using the phone? No Are you deaf or do you have serious difficulty hearing? Yes Do you need help to go to places out of walking distance? No Do you need help shopping? No Do you need help preparing meals? No Do you need help with housework? No Do you need help with laundry? No Do you need help taking your medications? No Do you need help managing money? No Do you ever drive or ride in a car without wearing a seat belt? No Have you felt unusual fatigue (could be tiredness), stress, anger or loneliness in the last month? No Who do you live with? Spouse If you need help, do you have trouble finding someone available to you? No Have you been bothered in the last four weeks by sexual problems? No Do you have difficulty concentrating, remembering or making decisions? No Age-appropriate Screening Schedule: Refer to the list below for future screening recommendations based on patient's age, sex and/or medical conditions. Orders for these recommended tests are listed in the plan section. The patient has been provided with a written plan. Health Maintenance List Health Maintenance Topic Date Due DXA SCAN Never done TDAP/TD VACCINES (1 - Tdap) Never done ZOSTER VACCINE (1 of 2) Never done LUNG CANCER SCREENING Never done HEPATITIS C SCREENING Never done LIPID PANEL 11/13/2024 COVID-19 Vaccine ( season) 2024 (Originally 12/25/2023) INFLUENZA VACCINE 01/23/2025 COLORECTAL CANCER SCREENING 11/04/2025 ANNUAL WELLNESS VISIT 11/12/2025 MAMMOGRAM 06/08/2026 Pneumococcal Vaccine 50+ Completed [facility] Preventative Services Quick Reference Risk Factors Identified During Encounter Chronic Pain: Natural history and expected course discussed. Questions answered. Proceed with MRI to reassess in comparison to 2020. Symtpoms have worsened. Specialy referral will be made once MRI has been completed Fall Risk-High or Moderate: Discussed Fall Prevention in the home Immunizations Discussed/Encouraged: Influenza and COVID19 Vision Screening Recommended Surveillance labs from chronic conditions Progression of back pain is having greatest impact on patient mental and physical health. The above risks/problems have been discussed with the patient. Pertinent information has been shared with the patient in the After Visit Summary. An After Visit Summary and PPPS were made available to the patient. Follow Up: Next Medicare Wellness visit to be scheduled in 1 year. Additional E&M Note during same encounter follows: Patient has additional, significant, and separately identifiable condition(s)/problem(s) that require work above and beyond the Medicare Wellness Visit Chief Complaint Medicare Wellness-subsequent Subjective HPI Carlos is also being seen today for an annual adult preventative physical exam. Review of Systems Musculoskeletal: Positive for back pain and gait problem. Neurological: Positive for weakness. All other systems reviewed and are negative. Objective Vital Signs: BP 120/80 Pulse 99 Temp 97.7 ??F (36.5 ??C) Resp 20 Ht 165.1 cm (65 ) Wt 88.4 kg (194 lb 12.8 oz) SpO2 100% BMI 32.42 kg/m?? Physical Exam Constitutional: General: She is not in acute distress. Appearance: Normal appearance. She is not ill-appearing. HENT: Head: Normocephalic and atraumatic. Right Ear: Tympanic membrane and ear canal normal. Left Ear: Tympanic membrane and ear canal normal. Nose: Nose normal. Mouth/Throat: Mouth: Mucous membranes are moist. Pharynx: Oropharynx is clear. No posterior oropharyngeal erythema. Eyes: Extraocular Movements: Extraocular movements intact. Conjunctiva/sclera: Conjunctivae normal. Pupils: Pupils are equal, round, and reactive to light. Cardiovascular: Rate and Rhythm: Normal rate and regular rhythm. Pulses: Normal pulses. Heart sounds: Normal heart sounds. Pulmonary: Effort: Pulmonary effort is normal. No respiratory distress. Breath sounds: Normal breath sounds. Abdominal: General: Abdomen is flat. Bowel sounds are normal. Palpations: Abdomen is soft. Tenderness: There is no abdominal tenderness. Musculoskeletal: General: Normal range of motion. Cervical back: Normal range of motion and neck supple. Comments: Weakness of left hip flexion Lymphadenopathy: Cervical: No cervical adenopathy. Skin: General: Skin is warm and dry. Capillary Refill: Capillary refill takes less than 2 seconds. Neurological: General: No focal deficit present. Mental Status: She is alert and oriented to person, place, and time. Mental status is at baseline. Cranial Nerves: No cranial nerve deficit. Sensory: No sensory deficit. Motor: No weakness. Gait: Gait abnormal. Psychiatric: Mood and Affect: Mood normal. Behavior: Behavior normal. Thought Content: Thought content normal. Judgment: Judgment normal. The following data was reviewed by: Bo Weir MD on 11/12/2024: Data reviewed : Radiologic studies MRI Lumbar spine 2020 Assessment and Plan Medicare annual wellness visit, subsequent Annual physical exam Major depressive disorder, recurrent, mild Orders: citalopram (CeleXA) 40 MG tablet; Take 1 tablet by mouth Daily. Primary hypertension Hypertension is stable and controlled Continue current treatment regimen. Blood pressure will be reassessed in 6 months. Orders: lisinopril (PRINIVIL,ZESTRIL) 5 MG tablet; Take 1 tablet by mouth Daily. CBC (No Diff) Comprehensive Metabolic Panel Hypercholesterolemia At goal Orders: rosuvastatin (CRESTOR) 5 MG tablet; Take 1 tablet by mouth Daily. Comprehensive Metabolic Panel Lipid Panel Impaired fasting glucose A1c ordered Orders: Comprehensive Metabolic Panel Hemoglobin A1c Cigarette smoker Orders: CT Chest Low Dose Cancer Screening WO; Future Personal history of nicotine dependence Cont yearly LDCT for lung cancer screen Orders: CT Chest Low Dose Cancer Screening WO; Future Encounter for screening for lung cancer Orders: CT Chest Low Dose Cancer Screening WO; Future Arthritis of lumbar spine Orders: MRI Lumbar Spine Without Contrast; Future Bilateral renal cysts U/s to assess for growth Orders: US Renal Bilateral; Future Chronic bilateral low back pain with left-sided sciatica MRI, then specialty referral. Orders: MRI Lumbar Spine Without Contrast; Future Unsteady gait when walking Orders: MRI Lumbar Spine Without Contrast; Future Foraminal stenosis of lumbar region Orders: MRI Lumbar Spine Without Contrast; Future Lumbar disc disease with radiculopathy Orders: MRI Lumbar Spine Without Contrast; Future Follow Up Return in about 6 months (around 05/15/2025) for Next scheduled follow up HTN, Chronic back pain. Patient was given instructions and counseling regarding her condition or for health maintenance advice. Please see specific information pulled into the AVS if appropriate. documented in this encounter Plan of Treatment Upcoming Encounters Date Type Department Care Team (Late st Contact Info) Description 11/30/2024 8:30 AM EDT Appointment [facility] [place] [address] [phone] 02/15/2025 8:00 AM EDT Office Visit [facility] [address] [place] [address] Bo Weir MD [address] [place] [address] 05/16/2025 8:00 AM EST Office Visit [facility] [address] [place] [address] Bo Weir MD [address] [place] [address] 11/14/2025 9:15 AM EDT Office Visit [facility] [address] [place] [address] Bo Weir MD [address] [place] [address] Scheduled Orders Name Type Priority Associated Diagnoses Orde r Schedule CT Chest Low Dose Cancer Screening WO Imaging Routine Cigarette smoker Personal history of nicotine dependence Encounter for screening for lung cancer Expected: 11/13/2024, Expires: 11/12/2025 Renal Bilateral Imaging Routine Bilateral renal cysts Expected: 11/13/2024, Expires: 02/12/2026 MRI Lumbar Spine Without Contrast Imaging Routine 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 Unsteady gait when walking Foraminal stenosis of lumbar region Lumbar disc disease with radiculopathy Expected: 11/13/2024, Expires: 02/12/2026 documented as of this encounter Procedures Procedure Name Priority Date/Time Associated Diagnosis Comments CBC (NO DIFF) Routine 11/12/2024 9:54 AM EDT Primary hypertension HEMOGLOBIN A1C Routine 11/12/2024 9:54 AM EDT Impaired fasting glucose LIPID PANEL Routine 11/12/2024 9:54 AM EDT Hypercholesterolemia COMPREHENSIVE METABOLIC PANEL Routine 11/12/2024 9:54 AM EDT Primary hypertension Hypercholesterolemia Impaired fasting glucose documented in this encounter Results * (ABNORMAL) Hemoglobin A1c (11/12/2024 9:54 AM EDT) Pathologist [facility] Hemoglobin A1C 6.60(H) 4.80 - 5.60 % [facility] Comment: Hemoglobin A1C Ranges: Increased Risk for Diabetes 5.7% to 6.4% Diabetes >= 6.5% Diabetic Goal < 7.0% Blood 11/12/2024 9:54 AM EDT 11/12/2024 Narrative [facility] (AMBULATORY) - 11/13/2024 3:07 AM EDT Performed at: [address] [place] [id number] Machine [employer] Etcher: Ari Kim MD, Phone: [phone] Patient Fasting: Y us Bo Weir MD LAB BLOOD ORDERABLES Fin al Result [facility] ([facility]BUL[facility]ORY) [address] [place] [address], [place] [phone] [facility] [address] [place] [address], [place] [phone] * (ABNORMAL) Lipid Panel (11/12/2024 9:54 AM EDT) [facility] Total Cholesterol 164 0 - 200 mg/dL [facility] Comment: Cholesterol Reference Ranges (U.S. Department of Health and Human Services ATP III Classifications) Desirable <200 mg/dL Borderline High 200-239 mg/dL High Risk >240 mg/dL Triglyceride Reference Ranges (U.S. Department of Health and Human Services ATP III Classifications) Normal <150 mg/dL Borderline High 150-199 mg/dL High 200-499 mg/dL Very High >500 mg/dL HDL Reference Ranges (U.S. Department of Health and Human Services ATP III Classifications) Low <40 mg/dl (major risk factor for CHD) High >60 mg/dl ('negative' risk factor for CHD) LDL Reference Ranges (U.S. Department of Health and Human Services ATP III Classifications) Optimal <100 mg/dL Near Optimal 100-129 mg/dL Borderline High 130-159 mg/dL High 160-189 mg/dL Very High >189 mg/dL LDL is calculated using the NIH LDL-C calculation. Triglycerides 220(H) 0 - 150 mg/dL [facility] HDL Cholesterol 59 40 - 60 mg/dL [facility] VLDL Cholesterol Matthew 36 5 - 40 mg/dL [facility] LDL Chol Calc (NIH) 69 0 - 100 mg/dL [facility] Blood 11/12/2024 9:54 AM EDT 11/12/2024 Narrative [facility] (AMB[facility]) - 11/13/2024 3:07 AM EDT Performed at: [address] [place] [id number] [employer] Etcher: Ari Kim MD, Phone: [phone] Patient Fasting: Y us Bo Weir MD LAB BLOOD ORDERABLES Fin al Result [facility] ([facility]BULATORY) [address] [place] [address], [place] [phone] [facility] [address] [place] [address], [place] [phone] * (ABNORMAL) Comprehensive Metabolic Panel (11/12/2024 9:54 AM EDT) [facility] Glucose 97 65 - 99 mg/dL [facility] BUN 11.0 8.0 - 23.0 mg/dL [facility] Creatinine 0.65 0.57 - 1.00 mg/dL [facility] EGFR Result 95.4 >60.0 mL/min/1.7 3 [facility] Comment: GFR Categories in Chronic Kidney Disease (CKD) GFR Category GFR (mL/min/1.73) Interpretation G1 90 or greater Normal or high (1) G2 60-89 Mild decrease (1) G3a 45-59 Mild to moderate decrease G3b 30-44 Moderate to severe decrease G4 15-29 Severe decrease G5 14 or less Kidney failure (1)In the absence of evidence of kidney disease, neither GFR category G1 or G2 fulfill the criteria for CKD. eGFR calculation 2020 CKD-EPI creatinine equation, which does not include race as a factor BUN/Creatinine Ratio 16.9 7.0 - 25.0 [facility] Sodium 140 136 - 145 mmol/L [facility] Potassium 4.4 3.5 - 5.2 mmol/L [facility] Chloride 101 98 - 107 mmol/L [facility] Total CO2 26.0 22.0 - 29.0 mmol/L [facility] Calcium 10.1 8.6 - 10.5 mg/dL [facility] Total Protein 7.9 6.0 - 8.5 g/dL [facility] Albumin 4.6 3.5 - 5.2 g/dL [facility] Globulin 3.3 gm/dL [facility] A/G Ratio 1.4 g/dL [facility] Total Bilirubin 0.2 0.0 - 1.2 mg/dL [facility] Alkaline Phosphatase 144(H) 39 - 117 U/L [facility] AST (SGOT) 26 1 - 32 U/L [facility] ALT (SGPT) 24 1 - 33 U/L [facility] Blood 11/12/2024 9:54 AM EDT 11/12/2024 Narrative [facility] ([facility]) - 11/13/2024 3:07 AM EDT Performed at: [address] [id number] [employer] Etcher: Ari Kim MD, Phone: [phone] Patient Fasting: Y Bo Weir MD LAB BLOOD ORDERABLES Fin al Result Performing Organization Address [facility]/ZIP Co de Phone Number [facility] ([facility]) [address] [place] [address], [place] [phone] [facility] [address] [place] [address], [place] [phone] * (ABNORMAL) CBC (No Diff) (11/12/2024 9:54 AM EDT) [facility] WBC 14.55(H) 3.40 - 10.80 10*3/mm3 [facility] RBC 4.38 3.77 - 5.28 10*6/mm3 [facility] Hemoglobin 13.8 12.0 - 15.9 g/dL [facility] Hematocrit 40.9 34.0 - 46.6 % [facility] MCV 93.4 79.0 - 97.0 fL [facility] MCH 31.5 26.6 - 33.0 pg [facility] MCHC 33.7 31.5 - 35.7 g/dL [facility] RDW 12.9 12.3 - 15.4 % [facility] Platelets 381 140 - 450 10*3/mm3 [facility] Blood 11/12/2024 9:54 AM EDT 11/12/2024 Narrative [facility] ([facility]) - 11/13/2024 3:07 AM EDT Performed at: - [address] [id number] [employer] Etcher: Ari Kim MD, Phone: [phone] Patient Fasting: Y Bo Weir MD LAB BLOOD ORDERABLES Fin al Result Performing Organization Address [facility]/ZIP Co de Phone Number [facility] ([facility]) [address] [place] [address], [place] [phone] [facility] [address] [place] [address], [place] [phone] documented in this encounter Visit Diagnoses Diagnosis Medicare annual wellness visit, subsequent- Primary Annual physical exam Routine general medical examination at a health care facility Major depressive disorder, recurrent, mild Major depressive disorder, recurrent episode, mild Primary hypertension Unspecified essential hypertension Hypercholesterolemia Pure hypercholesterolemia Impaired fasting glucose Cigarette smoker Tobacco use disorder Personal history of nicotine dependence Encounter for screening for lung cancer Arthritis of lumbar spine Bilateral renal cysts 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
--- OUTSIDE RECORDS SUMMARY | 2024-11-15 14:00 | XMS_ITS | Encounter Summary ---
Author Organization [facility] Address [address] [place] [address] Care Team Providers Care Truck Technician Name Role Phone Bo Weir MD Primary Care Provider + Reason for Visit * Reason Comments Follow-up Encounter Details Date Type Department Care Team (Late st Contact Info) Description 11/15/2024 2:00 PM EDT Office Visit [facility] [address] [place] [address] Bo Weir MD [address] [place] [address] Type 2 diabetes mellitus without complication, without long-term current use of insulin (Primary Dx); Hypercholesterolemia Social History Tobacco Use Types Packs/Day Years Used Date Smoking Tobacco: Every Day Cigarettes 1 40.5 Started: 01/24/1985 Smokeless Tobacco: Never Comments:smoked for over 40 years Alcohol Use [...] Reading Time Taken Comments Blood Pressure 120/80 11/15/2024 2:03 PM EDT Pulse 99 11/15/2024 2:03 PM EDT Temperature 36.9 C (98.4 F) 11/15/2024 2:03 PM EDT Respiratory Rate 20 11/15/2024 2:03 PM EDT Oxygen Saturation 100% 11/15/2024 2:03 PM EDT Inhaled Oxygen Concentration - - Weight 88.9 kg (196 lb) 11/15/2024 2:03 PM EDT Height 165.1 cm (5' 5 ) 11/15/2024 2:03 PM EDT Body Mass Index 32.62 11/15/2024 2:03 PM EDT documented in this encounter Progress Notes * Bo Weir MD - 11/15/2024 2:27 PM EDTAssociated Problem(s): Hypercholesterolemia At goal of < 70 Reassess at 3 or 6 month f/u * Bo Weir MD - 11/15/2024 2:27 PM EDTAssociated Problem(s): Type 2 diabetes mellitus without complication, without long-term current useof insulin Diabetes is newly identified. Medication changes per orders. Recommended an ADA diet. Reminded to get yearly retinal exam. Diabetes will be reassessed in 3 months * Bo Weir MD - 11/15/2024 2:00 PM EDT Images from the original note were not included. Chief Complaint Patient presents with Follow-up Subjective Tomsharyn Butcher is a 69 y.o. who presents for newly diagnosed DM. A1c 6.6%. She returns to discuss treatment. Cholesterol was also moving in the wrong direction. Drinks 16-32 ounces of Mountain Dew Daily. Uses 2 tbsp brown sugar in her coffee each morning. Minimal snacking, dessert cakes, cookies. FH of DM in her mother. The following portions of the patient's history were reviewed and updated as appropriate: allergies, current medications, past family history, past medical history, past social history, past surgicalhistory, and problem list. Review of Systems Objective Vital Signs: BP 120/80 Pulse 99 Temp 98.4 ??F (36.9 ??C) Resp 20 Ht 165.1 cm (65 ) Wt 88.9 kg (196 lb) SpO2 100% BMI 32.62 kg/m?? Physical Exam Vitals reviewed. Constitutional: Appearance: Normal appearance. Neurological: Mental Status: She is alert. Result Review The following data was reviewed by: Bo Weir MD on 11/15/2024: Lipid Panel 11/12/2024 09:54 Lipid Panel Total Cholesterol 164 Triglycerides 220 HDL Cholesterol 59 VLDL Cholesterol 36 LDL Cholesterol 69 Most Recent A1C 11/12/2024 09:54 HGBA1C Most Recent Hemoglobin A1C 6.60 Assessment and Plan Diagnoses and all orders for this visit: 1. Type 2 diabetes mellitus without complication, without long-term current use of insulin (Primary) Assessment & Plan: Diabetes is newly identified. Medication changes per orders. Recommended an ADA diet. Reminded to get yearly retinal exam. Diabetes will be reassessed in 3 months Orders: - Cancel: POC Albumin/Creatinine Ratio Urine - metFORMIN (GLUCOPHAGE) 500 MG tablet; Take 1 tablet by mouth Daily With Breakfast. Dispense: 30 tablet; Refill: 5 2. Hypercholesterolemia Assessment & Plan: At goal of < 70 Reassess at 3 or 6 month f/u Follow Up Return in about 3 months (around 02/15/2025) for Next scheduled follow up. Patient was given instructions and counseling regarding her condition or for health maintenance advice. Please see specific information pulled into the AVS if appropriate. documented in this encounter Plan of Treatment Upcoming Encounters Date Type Department Care Team (Late st Contact Info) Description 11/30/2024 8:30 AM EDT Appointment [address] [place] [address] 02/15/2025 8:00 AM EDT Office Visit [facility] [address] [place] [address] Bo Weir MD [address] [place] [address] 05/16/2025 8:00 AM EST Office Visit [facility] [address] [place] [address] Bo Weir MD [address] [place] [address] 11/14/2025 9:15 AM EDT Office Visit [facility] [address] [place] [address] Bo Weir MD [address] [place] [address] documented as of this encounter Visit Diagnoses Diagnosis Type 2 diabetes mellitus without complication, without long-term current use of insulin- Primary Hypercholesterolemia Pure hypercholesterolemia documented in this encounter Additional Health Concerns Assessment Noted Time PHQ-2 Depression Total Score: 2 11/11/19 24 4:47 PM EDT documented as of this encounter Care Teams Truck Technician Relationship Specialty Start Date End Date Bo Weir MD PCP - General Family Medicine 09/15/20 documented as of this encounter
--- NOTE | 2024-11-23 09:11 | CT_ITS ---
FINAL REPORT TECHNIQUE: Thin section axial images were obtained through the lungs using a low-dose technique per lung cancer screening protocol. Reconstruction images were obtained using the axial data. Exam was performed using dose reduction technique. CLINICAL HISTORY: current smoker, 1ppd for 40yrs COMPARISON: 11/18/2023 FINDINGS: CTDLvol: 2.90 DLP: 96.38 Current smoker 40 pack year history Lungs: No acute pulmonary abnormality. Stable 4 mm left upper lobe nodule on series 4, image 16. No other suspicious nodule or mass identified. Lymph nodes: No thoracic lymphadenopathy. Mediastinum: Heart size is normal. Pleura/pericardium: No pleural or pericardial effusion. Other: No acute abnormality in the upper abdomen. IMPRESSION: Stable left upper lobe nodule. Lung RADS: 2 Recommendation: 12 month follow-up low-dose CT Reviewed, Interpreted and Dictated by Jenny eKen MD Transcribed by Keiko Solo Authenticated and [facility]
--- NOTE | 2024-11-23 09:11 | US_ITS ---
FINAL REPORT CLINICAL HISTORY: CEDRICK RENAL CYSTS/ HX NICOTINE COMPARISON: CT 05/06/2021 FINDINGS: RENAL ULTRASOUND Ultrasound images of the kidneys were obtained. The right kidney measures 10.7 cm in length. No hydronephrosis, mass, or stone. The left kidney measures 10.1 cm in length. No hydronephrosis. Echogenic foci in the mid left kidney, nonshadowing. Nonobstructing stone not excluded. 1 cm left renal cyst. Normal cortical echogenicity and thickness bilaterally. IMPRESSION: Left renal cyst. Possible nonobstructing left renal stone. Reviewed, Interpreted and Dictated by Jenny Keen MD Transcribed by Keiko Solo Authenticated and [facility]
--- OUTSIDE RECORDS SUMMARY | 2024-11-23 09:12 | XMS_ITS | Clinical Summary ---
[facility] Address [address] [place] [address] Care Team Providers Care Label Drier Name Role Phone Bo Weir MD Primary Care Provider + Allergies Active Allergy Reactions Criticality Noted Date Comments Codeine GI Intolerance Medium 10/01/2020 Sulfa Antibiotics Other (See Comments) Low 10/02/19 21 Patient states this medication makes her feel weak. Medications Multiple Vitamins-Mineral s (ICAPS AREDS 2 PO) Take by mouth. Active VITAMIN D, ERGOCALCIFEROL, PO Take by mouth. Active Calcium Carb-Cholecalcif fito (CALCIUM 600-D PO) Take by mouth. Active cyclobenzaprine (FLEXERIL) 5 MG tabletIndication s:Acute right-sided low back pain with bilateral sciatica Take 1 tablet by mouth 3 (Three) Times a Day As Needed for Muscle Spasms. 30 tablet 2 10/09/19 25 Active lidocaine (LIDODERM) 5 %Indications:Pos t herpetic neuralgia PLACE ONE PATCH ON THE SKIN DIRECTED REMOVE AFTER 12 HOURS OR DIRECTED BY MD 30 patch 10/30/19 25 Active citalopram (CeleXA) 40 MG tabletIndication s:Major depressive disorder, recurrent, mild Take 1 tablet by mouth Daily. 90 tablet 3 11/13/19 25 Active lisinopril (PRINIVIL,ZESTRI L) 5 MG tabletIndication s:Primary hypertension Take 1 tablet by mouth Daily. 90 tablet 3 11/13/19 25 Active rosuvastatin (CRESTOR) 5 MG tabletIndication s:Hypercholester olemia Take 1 tablet by mouth Daily. 90 tablet 3 11/13/19 25 Active metFORMIN (GLUCOPHAGE) 500 MG tabletIndication s:Type 2 diabetes mellitus without complication, without long-term current use of insulin Take 1 tablet by mouth Daily With Breakfast. 30 tablet 5 11/16/19 25 Active lisinopril (PRINIVIL,ZESTRI L) 5 MG tabletIndication s:Primary hypertension Take 1 tablet by mouth Daily. 90 tablet 3 11/11/19 24 025 Discontinued rosuvastatin (CRESTOR) 5 MG tabletIndication s:Hypercholester olemia Take 1 tablet by mouth Daily. 90 tablet 3 11/11/19 24 025 Discontinued(Re order) citalopram (CeleXA) 40 MG tabletIndication s:Major depressive disorder, recurrent, mild Take 1 tablet by mouth Daily. 90 tablet 1 05/15/19 25 025 Discontinued(Re order) lidocaine (LIDODERM) 5 %Indications:Pos t herpetic neuralgia Place 1 patch on the skin as directed by provider Daily. Remove & Discard patch within 12 hours or as directed by MD 30 each 5 05/15/19 25 025 Discontinued lisinopril (PRINIVIL,ZESTRI L) 5 MG tabletIndication s:Primary hypertension Take 1 tablet by mouth once daily 90 tablet 11/06/19 25 025 Discontinued(Re order) Active Problems Problem Noted Date Diagnosed Date Type 2 diabetes mellitus wit hout complication, without long-term current use of insulin 11/15/2024 Assessment & Plan (11/15/2024 2:27 PM EDT): Diabetes is newly identified. Medication changes per orders. Recommended an ADA diet. Reminded to get yearly retinal exam. Diabetes will be reassessed in 3 months Hypercholesterolemia 11/15/2024 Assessment & Plan (11/15/2024 2:27 PM EDT): At goal of < 70 Reassess at 3 or 6 month f/u Arthritis of lumbar spine 05/30/2023 Assessment & Plan (11/12/2024 10:53 AM EDT): Orders: MRI Lumbar Spine Without Contrast; Future Primary hypertension 11/04/2022 Assessment & Plan (11/12/2024 10:53 AM EDT): Hypertension is stable and controlled Continue current treatment regimen. Blood pressure will be reassessed in 6 months. Orders: lisinopril (PRINIVIL,ZESTRIL) 5 MG tablet; Take 1 tablet by mouth Daily. CBC (No Diff) Comprehensive Metabolic Panel Assessment & Plan (11/11/2023 4:12 PM EDT): Cigarette smoker 11/04/2022 Assessment & Plan (11/12/2024 10:53 AM EDT): Orders: CT Chest Low Dose Cancer Screening WO; Future Encounters Date Type Department Care Team Description 11/15/2024 2:00 PM EDT Office Visit [facility] [address] [place] [place] [address] Bo Weir MD Type 2 diabetes mellitus without complication, without long-term current use of insulin (Primary Dx); Hypercholesterolemia 11/15/2024 Travel 11/13/2024 Results Follow-Up [facility] [address] [place] [address] Bo Weir MD 11/12/2024 9:15 AM EDT Office Visit [facility] [address] [place] [address] Bo Weir MD Medicare annual wellness visit, subsequent (Primary Dx); Annual physical exam; Major depressive disorder, recurrent, mild; Primary hypertension; Hypercholesterolemia; Impaired fasting glucose; Cigarette smoker; Personal history of nicotine dependence; Encounter for screening for lung cancer; Arthritis of lumbar spine; Bilateral renal cysts; Chronic bilateral low back pain with left-sided sciatica; Unsteady gait when walking; Foraminal stenosis of lumbar region; Lumbar disc disease with radiculopathy 11/12/2024 Travel 11/04/2024 Refill [facility] [address] [place] [address] Bo Weir MD Primary hypertension 10/27/2024 Refill [facility] [address] [place] [phone] Bo Weir MD Post herpetic neuralgia 10/08/2024 Refill [facility] [address] [place] [address] Bo Weir MD Acute right-sided low back pain with bilateral sciatica from Last 3 Months Immunizations Immunization Administration Dates Next Due Pneumococcal Conjugate 20-Valent (PCV20) 023 Family History Medical History Relation Name Comments Other Brother 1 Santy Head cancer Hypertension Brother 2 Miguel Head Stroke Father Atha Head Arthritis Mother Jennifer Lisa Head Breast cancer Mother Jennifer Olivasa Head Cancer Mother Jennifer Lisa Head Depression Mother Jennifer Olivasa Head Diabetes Mother Jennifer Olivasa Head Relation Name Status Comments Brother 1 Santy Head Brother 2 Miguel Head Father Atha Head Mother Jennifer Gonzalez Head Social History Tobacco Use Types Packs/Day Years [...] on file Sexual Orientation Not on file Last Filed Vital Signs Vital Sign Reading [...] Mass Index 32.62 11/15/2024 2:03 PM EDT Plan of Treatment Upcoming Encounters Date Type Department Care Team (Late st Contact Info) Description 11/30/2024 8:30 AM EDT Appointment [address] [address] 02/15/2025 8:00 AM EDT Office Visit [facility] [address] [place] [phone] Bo Weir MD [address] [place] [address] 05/16/2025 8:00 AM EST Office Visit [facility] [address] [place] [phone] Bo Weir MD [address] [facility] [place] [address] 11/14/2025 9:15 AM EDT Office Visit [facility] [address] [place] [address] Bo Weir MD [address] [place] [address] Health Maintenance Due Date Last Done Comments DXA SCAN 1955 DIABETIC EYE EXAM 10/24/1965 DIABETIC FOOT EXAM 10/24/1965 URINE MICROALBUMIN-CREATININE RATIO (uACR) 10/24/1965 TDAP/TD VACCINES (1 - Tdap) 10/24/1974 COLON CANCER SCREENING 5 YEAR SIGMOIDOSCOPY 10/24/2000 COLONOSCOPY 10/24/2000 CT COLONOGRAPHY 10/24/2000 FECAL OCCULT BLOOD TEST 10/24/2000 FIT Testing (1 year) 10/24/2000 LUNG CANCER SCREENING 10/24/2005 ZOSTER VACCINE (1 of 2) 10/24/2005 HEPATITIS C SCREENING 10/01/2020 COVID-19 Vaccine (3 - season) 2024 01/23/2021, 01/02/2021 Postponed from 12/25/2023 (Product Unavailable) INFLUENZA VACCINE 01/23/2025 HEMOGLOBIN A1C 05/15/2025 11/12/2024 COLOGUARD 11/04/2025 11/04/2022, 01/10/2022 COLORECTAL CANCER SCREENING 11/04/2025 ANNUAL WELLNESS VISIT 11/12/2025 11/12/2024 , 11/12/2024, 11/11/2023, Additional history exists LIPID PANEL 11/12/2025 11/12/2024, 10/24, 01/27/2023, Additional history exists MAMMOGRAM 06/08/2026 06/08/2024, 07/2023, 01/19/2022 Pneumococcal Vaccine 50+ Completed 11/04/2022 Procedures Procedure Name Priority Date/Time Associated Diagnosis Comments HEMOGLOBIN A1C Routine 11/12/2024 9:54 AM EDT Impaired fasting glucose LIPID PANEL Routine 11/12/2024 9:54 AM EDT Hypercholesterolemia COMPREHENSIVE METABOLIC PANEL Routine 11/12/2024 9:54 AM EDT Primary hypertension Hypercholesterolemia Impaired fasting glucose CBC (NO DIFF) Routine 11/12/2024 9:54 AM EDT Primary hypertension SCANNED - MAMMO 06/08/2024 SCANNED - COLOGUARD 11/04/2022 from Last 3 Months or Most Recently Relevant to Health Maintenance Results * (ABNORMAL) CBC (No Diff) (11/12/2024 9:54 AM EDT) WBC 14.55(H) 3.40 - 10.80 10*3/mm3 [facility] [...] 11/12/2024 9:54 AM EDT 11/12/2024 Narrative [facility] (AMBULATORY) - 11/13/2024 3:07 AM EDT Performed at: [address] [place] [id number] Cnc Operator Machinist: Ari Kim MD, Phone: [phone] Patient Fasting: Y Bo Weir MD LAB BLOOD ORDERABLES Fin al Result [facility] (AMBULATORY) [address] [place] [address], [facility] [address] [place] [address], * (ABNORMAL) Hemoglobin A1c (11/12/2024 9:54 AM EDT) Hemoglobin A1C 6.60(H) 4.80 - 5.60 % [facility] Comment: Hemoglobin A1C Ranges: Increased Risk for Diabetes 5.7% to 6.4% Diabetes >= 6.5% Diabetic Goal < 7.0% Blood 11/12/2024 9:54 AM EDT 11/12/2024 Narrative [facility] (AMBULATORY) - 11/13/2024 3:07 AM EDT Performed at: [address] [place] [address] [place], [place], [place] [id number] Cnc Operator Machinist: Ari Kim MD, Phone: [phone] Patient Fasting: Y Bo Weir MD LAB BLOOD ORDERABLES Fin al Result [facility] (AMBULATORY) [address] [place] [address], [facility] [address] [place] [address], * (ABNORMAL) Lipid Panel (11/12/2024 9:54 AM EDT) [facility] Total Cholesterol 164 0 - 200 mg/dL [...] 11/12/2024 9:54 AM EDT 11/12/2024 Narrative [facility] (AMBULATORY) - 11/13/2024 3:07 AM EDT Performed at: [address] [place] [address] [place], [place], [place] [id number] Cnc Operator Machinist: Ari Kim MD, Phone: [phone] Patient Fasting: Y us Bo Weir MD LAB BLOOD ORDERABLES Fin al Result [facility] (AMBULATORY) [address] [place] [address], [facility] [address] [place] [address], * (ABNORMAL) Comprehensive Metabolic Panel (11/12/2024 9:54 AM EDT) [facility] Glucose 97 65 - 99 mg/dL [facility] [...] 11/12/2024 9:54 AM EDT 11/12/2024 Narrative [facility] (AMBULATORY) - 11/13/2024 3:07 AM EDT Performed at: [address] [place] [id number] Cnc Operator Machinist: Ari Kim MD, Phone: [phone] Patient Fasting: Y Bo Weir MD LAB BLOOD ORDERABLES Fin al Result [facility] (AMBULATORY) [address] [place] [address], [facility] [address] [place] [address], [place] [phone] * MAMMO Scan (06/08/2024) Anatomical Region Laterality Modality Other us Bo Weir MD CHART REVIEW TABS Fin al Result * SCANNED - COLOGUARD (11/04/2022) Bo Weir MD LAB BLOOD ORDERABLES Fin al Result from Last 3 Months or Most Recently Relevant to Health Maintenance Insurance [facility] MEDICARE ADVANTAGE HMO Care Teams Label Drier Relationship Specialty Start Date End Date Bo Weir MD PCP - General Family Medicine 09/15/20
--- OUTSIDE RECORDS SUMMARY | 2024-11-23 09:12 | XMS_ITS | Encounter Summary ---
[facility] Address [address] [place] [address] Care Team Providers Care Video Editor Name Role Phone Bo Weir MD Primary Care Provider + Reason for Visit * Reason Onset Date Comments Med Refill 10/08/2024 Encounter Details Date Type Department Care Team (Late st Contact Info) Description 10/08/2024 Refill [facility] [address] [place] [address] Bo Weir MD [address] [place] [address] Acute right-sided low back pain with bilateral sciatica Social History Tobacco Use Types Packs/Day Years [...] Date Recorded Patient Health Questionnaire-2 Score 0 05/15/2024 Comments Unknown Sex and Gender Information Value Date Recorded Sex Assigned at Female 11/07/2024 11:26 AM EDT Legal Sex Female 2:09 PM EDT Gender Identity Not on file Sexual Orientation Not on file documented as of this encounter Plan of Treatment Upcoming Encounters Date Type Department Care Team (Late st Contact Info) Description 11/30/2024 8:30 AM EDT Appointment [facility] [address] [facility] [address] [place] [address] 02/15/2025 8:00 AM EDT Office Visit [facility] [address] [place] [address] Bo Weir MD [address] [place] [address] 05/16/2025 8:00 AM EST Office Visit [facility] [address] [place] [address] Bo Weir MD [address] [place] [address] 11/14/2025 9:15 AM EDT Office Visit [facility] [address] [place] [address] Bo Weir MD [address] [facility] [address] documented as of this encounter Visit Diagnoses Diagnosis Acute right-sided low back pain with bilateral sciatica documented in this encounter Additional Health Concerns Assessment Noted Time PHQ-2 Depression Total Score: 2 11/11/19 24 4:47 PM EDT documented as of this encounter Care Teams Video Editor Relationship Specialty Start Date End Date Bo Weir MD PCP - General Family Medicine 09/15/20 documented as of this encounter
--- OUTSIDE RECORDS SUMMARY | 2024-11-23 09:12 | XMS_ITS | Encounter Summary ---
[facility] Address [address] [place] [address] Care Team Providers Care Global Sales Executive Name Role Phone Bo Weir MD Primary Care Provider + Reason for Visit * Reason Comments Med Refill Encounter Details Date Type Department Care Team (Late st Contact Info) Description 10/27/2024 Refill [facility] [address] [place] [address] Bo Weir MD [address] [place] [address] Post herpetic neuralgia Social History Tobacco Use Types Packs/Day Years [...] Info) Description 11/30/2024 8:30 AM EDT Appointment [facility] [address] [facility] [address] [place] [address] 02/15/2025 8:00 AM EDT Office Visit [facility] [address] [place] [address] Bo Weir MD [address] [place] [address] 05/16/2025 8:00 AM EST Office Visit [facility] [address] [place] [address] Bo Weir MD [address] [place] [address] 11/14/2025 9:15 AM EDT Office Visit [facility] [address] [place] [address] Bo Weir MD [address] [place] [address] documented as of this encounter Visit Diagnoses Diagnosis Post herpetic neuralgia Herpes zoster with other nervous system complications documented in this encounter Additional Health Concerns Assessment Noted Time PHQ-2 Depression Total Score: 2 11/11/19 24 4:47 PM EDT documented as of this encounter Care Teams Global Sales Executive Relationship Specialty Start Date End Date Bo Weir MD PCP - General Family Medicine 09/15/20 documented as of this encounter
--- OUTSIDE RECORDS SUMMARY | 2024-11-23 09:12 | XMS_ITS | Encounter Summary ---
Author Organization [facility] Address [address] [place] [address] Care Team Providers Care Agriculture Extension Specialist Name Role Phone Bo Weir MD Primary Care Provider + Encounter Details Date Type Department Care Team (Late st Contact Info) Description 11/13/2024 Results Follow-Up [facility] [address] [place] [address] Bo Weir MD [address] [place] [address] Social History Tobacco Use Types Packs/Day Years [...] Info) Description 11/30/2024 8:30 AM EDT Appointment [facility] [address] [facility] [address] [place] [address] 02/15/2025 8:00 AM EDT Office Visit [facility] [address] [place] [address] Bo Weir MD [address] [place] [address] 05/16/2025 8:00 AM EST Office Visit [facility] [address] [place] [address] Bo Weir MD [address] [place] [address] 11/14/2025 9:15 AM EDT Office Visit [facility] [address] [place] [address] Bo Weir MD [address] [place] [address] documented as of this encounter Visit Diagnoses Not on filedocumented in this encounter Additional Health Concerns Assessment Noted Time PHQ-2 Depression Total Score: 2 11/11/19 24 4:47 PM EDT documented as of this encounter Care Teams Agriculture Extension Specialist Relationship Specialty Start Date End Date Bo Weir MD PCP - General Family Medicine 09/15/20 documented as of this encounter
--- OUTSIDE RECORDS SUMMARY | 2024-11-23 09:12 | XMS_ITS | Encounter Summary ---
[facility] Organization [facility] Address [address] [place] [address] Care Team Providers Care Fish Rod Maker Name Role Phone Bo Weir MD Primary Care Provider + Encounter Details Date Type Department Care Team (Latest Contact Info) Description 11/12/2024 Travel Social History Tobacco Use Types Packs/Day Years [...] on file documented as of this encounter Functional Status documented as of this encounter Plan of Treatment Upcoming Encounters Date Type Department Care Team (Late st Contact Info) Description 11/30/2024 8:30 AM EDT Appointment [facility] [address] [facility] [address] [place] [address] 02/15/2025 8:00 AM EDT Office Visit [facility] [address] [place] [address] Bo Weir MD [address] [place] [address] 05/16/2025 8:00 AM EST Office Visit [facility] [address] [place] [address] Bo Weir MD [address] [facility] [place] [address] 11/14/2025 9:15 AM EDT Office Visit [facility] [address] [place] [address] Bo Weir MD [address] [place] [address] documented as of this encounter Visit Diagnoses Not on filedocumented in this encounter Additional Health Concerns Assessment Noted Time PHQ-2 Depression Total Score: 2 11/11/19 24 4:47 PM EDT documented as of this encounter Care Teams Fish Rod Maker Relationship Specialty Start Date End Date Bo Weir MD PCP - General Family Medicine 09/15/20 documented as of this encounter
--- OUTSIDE RECORDS SUMMARY | 2024-11-23 09:12 | XMS_ITS | Encounter Summary ---
Author Organization [facility] Address [address] [place] [address] Care Team Providers Care Scarf Gluer Name Role Phone Bo Weir MD Primary Care Provider + Encounter Details Date Type Department Care Team (Latest Contact Info) Description 11/15/2024 Travel Social History Tobacco Use Types Packs/Day [...] 11/30/2024 8:30 AM EDT Appointment [facility] [place] [address] [place] [address] [place] [id number] 02/15/2025 8:00 AM EDT Office Visit [facility] [address] [place] [address] Bo Weir MD [address] [place] [address] 05/16/2025 8:00 AM EST Office Visit [facility] [address] [place] [address] Bo Weir MD [address] [place] [address] 11/14/2025 9:15 AM EDT Office Visit [facility] [address] [place] [address] Bo Weir MD [address] [place] [address] documented as of this encounter Visit Diagnoses Not on filedocumented in this encounter Additional Health Concerns Assessment Noted Time PHQ-2 Depression Total Score: 2 11/11/19 24 4:47 PM EDT documented as of this encounter Care Teams Scarf Gluer Relationship Specialty Start Date End Date Bo eWir MD PCP - General Family Medicine 09/15/20 documented as of this encounter
--- OUTSIDE RECORDS SUMMARY | 2024-11-23 09:12 | XMS_ITS | Encounter Summary ---
Author Organization [facility] Address [address] [place] [address] Care Team Providers Care Scrub Technician Name Role Phone Bo Weir MD Primary Care Provider + Reason for Visit * Reason Comments Med Refill Encounter Details Date Type Department Care Team (Late st Contact Info) Description 11/04/2024 Refill [facility] [address] [place] [address] Bo Weir MD [address] [place] [address] Primary hypertension Social History Tobacco Use Types Packs/Day Years [...] Info) Description 11/30/2024 8:30 AM EDT Appointment [facility] [address] [facility] [address] [place] [address] 02/15/2025 8:00 AM EDT Office Visit [facility] [address] [place] [address] Bo Weir MD [address] [place] [address] 05/16/2025 8:00 AM EST Office Visit [facility] [address] [place] [address] Bo Weir MD [address] [place] [address] 11/14/2025 9:15 AM EDT Office Visit [facility] [address] [place] [address] Bo Weir MD [address] [place] [address] documented as of this encounter Visit Diagnoses Diagnosis Primary hypertension Unspecified essential hypertension documented in this encounter Additional Health Concerns Assessment Noted Time PHQ-2 Depression Total Score: 2 11/11/19 24 4:47 PM EDT documented as of this encounter Care Teams Scrub Technician Relationship Specialty Start Date End Date Bo Weir MD PCP - General Family Medicine 09/15/20 documented as of this encounter
== END 2024-11-23 23:59 | disposition home or self-care (01) ==
LOC: RAD 09:10
PROVIDERS: PCP Family Medicine; Visit Provider Family Medicine
DX: N28.1 Cyst of kidney, acquired (principal); R91.1 Solitary pulmonary nodule; F17.210 Nicotine dependence, cigarettes, uncomplicated
CPT/HCPCS: 71271; 76770